=== PATIENT | female | born 1970 ===

== ENCOUNTER 2018-09-25 10:25 | Emergency (ER) | payer OTHER ==
[2018-09-25 10:53] VITALS: BMI 30.8
--- NOTE | 2018-09-25 12:37 | ED PDOC ---
HPI: Back Time Seen by Provider: 09/25/18 11:05 Chief Complaint (Nursing): Lower Extremity Problem/Injury Chief Complaint (Provider): Right sided hip/back pain History Per: Patient History/Exam Limitations: no limitations Additional Complaint(s): 48 y/o F with no significant PMH who presents with Right sided hip and back pain for the past 5 days. Patient states that she has been using Ibuprofen 400mg and took a dose of Naproxen yesterday without any real improvement in symptoms. Pt states that pain begins in her Right lower back into her buttock and down to the front of her RIght thigh. Bending forward and sitting or laying down make it worse. Denies numbness or tingling in her feet or fever/chills. Past Medical History Reviewed: Historical Data, Nursing Documentation, Vital Signs Vital Signs: Last Vital Signs Temp 98.6 F 09/25/18 10:51 Pulse 74 09/25/18 10:51 Resp 17 09/25/18 10:51 BP 96/65 L 09/25/18 10:51 Pulse Ox 97 09/25/18 10:51 - Medical History PMH: No Chronic Diseases - Family History Family History: States: Unknown Family Hx - Home Medications Home Medications: Ambulatory Orders Medication Instructions Recorded Cyclobenzaprine [Cyclobenzaprine 10 mg PO Q8 PRN 7 Days tab 09/25/18 HCl] Ibuprofen [Motrin Tab] 600 mg PO Q6 PRN 7 Days tab 09/25/18 - Allergies Allergies/Adverse Reactions: Allergies Allergy/AdvReac Type Severity Reaction Status Date / Time No Known Allergies Allergy Verified 09/25/18 10:59 Review of Systems Constitutional: Negative for: Fever, Chills Musculoskeletal: Positive for: Back Pain Neurological: Negative for: Weakness, Numbness Physical Exam - Reviewed Nursing Documentation Reviewed: Yes Vital Signs Reviewed: Yes - Physical Exam Appears: Positive for: Uncomfortable Pulses-Dorsalis Pedis (L): 2+ Pulses-Dorsalis Pedis (R): 2+ Back: Positive for: Normal Inspection, Other (tenderness on palpation of Right lower back with tenderness on palpation of Right buttock. ) Extremity: Positive for: Capillary Refill (< 2 sec). Negative for: Normal ROM (decreased flexion and extension of back and flexion of Right hip. Flexion of RIght knee. ) Neurological/Psych: Positive for: Awake, Alert, Oriented - ECG O2 Sat by Pulse Oximetry: 97 Medical Decision Making Medical Decision Making: Flexeril 10mg PO x 1 Toradol 30mg IM x 1 Re-evaluated prior to d/c: pain has improved somewhat, stable for d/c home and advised that it will take several days for significant improvement in symptoms. Patient demonstrated understanding. Disposition - Clinical Impression Clinical Impression: Sciatica - Patient ED Disposition Is Patient to be Admitted: No - Disposition Referrals: Celia Wang [Family Provider] - Disposition: Routine/Home Disposition Time: 14:07 Condition: IMPROVED Additional Instructions: Follow up with your primary care doctor for further management of pain. Return to ER If pain worsens. Take Cyclobenzaprine (muscle relaxer) and Ibuprofen regularly for pain. Avoid taking Cyclobenzaprine if you will be driving or operating heavy machinery. Perform sciatica exercises when pain improves. Prescriptions: Cyclobenzaprine [Cyclobenzaprine HCl] 10 mg PO Q8 PRN 7 Days tab PRN Reason: Muscle Spasm Ibuprofen [Motrin Tab] 600 mg PO Q6 PRN 7 Days tab PRN Reason: Pain, Moderate (4-7) Instructions: Sciatica (DC), Sciatica Exercises Forms: [employer] (Malagasy) Print Language: COL[place]
[2018-09-25 14:07] VITALS: BP 102/70; PULSE 70; RESP 19; TEMP 97.6
[2018-09-25 20:54] VITALS: O2SAT 97
== END 2018-09-25 14:09 | disposition home or self-care (01) ==
LOC: H.ER 10:25
DX: M54.31 Sciatica, right side (principal)
CPT/HCPCS: 96372; 99284; J1885